=== PATIENT | male | born 1965 | race African-American/Black ===

== ENCOUNTER 2021-10-20 09:57 | Emergency (ER) | payer MEDICARE, OTHER ==
[~2021-10-20] VITALS: Ht 162.6 cm; Wt 77.3 kg
[~2021-10-20 09:57] MED LIST: ELVI1TAB3 PO
[2021-10-20 10:38] VITALS: BP 131/94
[2021-10-20] MEDS ORDERED: PERTUSS(ACELL),DIPH,TET VAC/PF 0.5 ML SYRINGE IM. ONE (10:45)
[2021-10-20] MEDS ORDERED: ACETAMINOPHEN 500 MG TABLET PO ONE (10:45)
== END 2021-10-20 11:40 | disposition home or self-care (01) ==
LOC: EMS 10:02
DX: S01.81XA Laceration without foreign body of other part of head, initial encounter (principal); F17.210 Nicotine dependence, cigarettes, uncomplicated; F14.90 Cocaine use, unspecified, uncomplicated; W22.8XXA Striking against or struck by other objects, initial encounter; Y93.89 Activity, other specified; Y92.89 Other specified places as the place of occurrence of the external cause; Y99.8 Other external cause status
CPT/HCPCS: 70450; 90471; 90715; 99284

== ENCOUNTER 2022-01-08 07:25 | Emergency (ER) | payer MEDICARE, OTHER ==
[~2022-01-08] VITALS: Ht 162.6 cm; Wt 63.6 kg
[2022-01-08 08:17] LABS: BASOPHILS % (AUTO) 0.8 % (0.0-2.0); EOSINOPHILS % (AUTO) 1.9 % (1.0-6.0); HEMATOCRIT 41.9 % (41-53); HEMOGLOBIN 14.3 g/dL (13.5-17.5); LYMPHOCYTES # (AUTO) 1.8 K/uL (1.0-4.8); LYMPHOCYTES % (AUTO) 26.2 % (22.0-44.0); MEAN CORPUSCULAR HEMOGLOBIN 31.9 pg (26.0-34.0); MEAN CORPUSCULAR VOLUME 94 fL (80-100); MONOCYTES # (AUTO) 0.6 K/uL (0.1-1.0); MONOCYTES % (AUTO) 9.6 % (2.0-9.0); NEUTROPHILS # (AUTO) 4.2 K/uL (1.8-7.7); NEUTROPHILS % (AUTO) 61.5 % (40.0-70.0); PLATELET COUNT (AUTO) 335 K/uL (150-450); RED BLOOD CELL COUNT(AUTO) 4.46 MIL/uL (4.50-5.90); RED CELL DISTRIBUTION WIDTH 13.8 % (11.5-14.5)
[2022-01-08] MEDS ORDERED: TRAZ-186 PO (08:21)
[2022-01-08] MEDS ORDERED: BICT1TAB PO (08:22)
[2022-01-08 08:26] LABS: ANION GAP 8 mmol/L (8-16); CALCIUM, TOTAL 8.9 mg/dL (8.8-10.5); CARBON DIOXIDE 28 mmol/L (22-29); CHLORIDE 98 mmol/L (98-107); CREATININE 1.22 mg/dL (0.60-1.30); GLOMERULAR FILTR. RATE CALC > 60 mL/min (>60); GLUCOSE,RANDOM 102 mg/dL (70-110); POTASSIUM 3.7 mmol/L (3.5-5.1); SODIUM SERUM 134 mmol/L (136-145); UREA NITROGEN, BLOOD 14 mg/dL (7-18)
[2022-01-08] MEDS ORDERED: GINS250C10 PO (08:26)
[2022-01-08] MEDS ORDERED: MULT-660 PO (08:26)
[2022-01-08] MEDS ORDERED: MILK500C PO (08:29)
[2022-01-08 08:31] LABS: ALANINE AMINOTRANSFERASE 115 U/L (12-78); ALBUMIN 4.1 g/dL (3.4-5.0); ALKALINE PHOSPHATASE 65 U/L (46-116); ASPARTATE AMINOTRANSFERASE 69 U/L (15-37); BILIRUBIN,TOTAL 1.1 mg/dL (0.1-1.0); TOTAL PROTEIN, SERUM 8.2 g/dL (6.4-8.2)
[2022-01-08 08:33] VITALS: BP 113/68
[2022-01-08 08:37] LABS: AMPHET/METH SCREEN,URINE NEGATIVE (NEGATIVE); BARBITURATE SCREEN, URINE NEGATIVE (NEGATIVE); BENZODIAZEPINES SCREEN,URINE NEGATIVE (NEGATIVE); CANNABINOID SCREEN,URINE NEGATIVE (NEGATIVE); COCAINE SCREEN,URINE POSITIVE (NEGATIVE); METHADONE SCREEN, URINE NEGATIVE (NEGATIVE); OPIATE SCREEN,URINE NEGATIVE (NEGATIVE)
[2022-01-08 08:38] LABS: PHENCYCLIDINE SCREEN,URINE NEGATIVE (NEGATIVE)
== END 2022-01-08 09:45 | disposition home or self-care (01) ==
LOC: EMS 07:30
DX: F32.9 Major depressive disorder, single episode, unspecified (principal); F14.90 Cocaine use, unspecified, uncomplicated; F15.90 Other stimulant use, unspecified, uncomplicated; F17.210 Nicotine dependence, cigarettes, uncomplicated; Z88.2 Allergy status to sulfonamides; Z79.899 Other long term (current) drug therapy
CPT/HCPCS: 36415; 80053; 80307; 85025; 99283; G0480

== ENCOUNTER 2024-05-21 06:14 | Emergency (ER) | payer MEDICARE, OTHER ==
[~2024-05-21] VITALS: Ht 165.1 cm; Wt 75.0 kg
[~2024-05-21 06:14] MED LIST changes: +BICT1TAB PO; +GINS250C10 PO; +MILK500C PO; +MULT-660 PO; +TRAZ-186 PO
[2024-05-21 06:16] VITALS: TEMP 97.9
[2024-05-21 06:28] VITALS: BP 118/68; PULSE 115; RESP 20
[2024-05-21 06:55] LABS: BASOPHILS % (AUTO) 0.3 % (0.0-2.0); EOSINOPHILS % (AUTO) 1.8 % (1.0-6.0); HEMATOCRIT 42.7 % (41-53); LYMPHOCYTES # (AUTO) 1.2 K/uL (1.0-4.8); LYMPHOCYTES % (AUTO) 17.2 % (22.0-44.0); MEAN CORPUSCULAR HEMOGLOBIN 32.7 pg (26.0-34.0); MEAN CORPUSCULAR HGB CONC 32.7 G/dL (31.0-37.0); MEAN CORPUSCULAR VOLUME 100 fL (80-100); MONOCYTES # (AUTO) 0.7 K/uL (0.1-1.0); MONOCYTES % (AUTO) 9.6 % (2.0-9.0); NEUTROPHILS # (AUTO) 5.1 K/uL (1.8-7.7); NEUTROPHILS % (AUTO) 71.1 % (40.0-70.0); PLATELET COUNT (AUTO) 340 K/uL (150-450); RED BLOOD CELL COUNT(AUTO) 4.27 MIL/uL (4.50-5.90); RED CELL DISTRIBUTION WIDTH 15.3 % (11.5-14.5); WHITE BLOOD COUNT (AUTO) 7.1 K/uL (4.5-11.0)
[2024-05-21 07:13] LABS: ANION GAP 3 mmol/L (8-16); CALCIUM, TOTAL 9.8 mg/dL (8.8-10.5); CARBON DIOXIDE 33 mmol/L (22-29); CHLORIDE 102 mmol/L (98-107); CREATININE 1.36 mg/dL (0.60-1.30); GLOMERULAR FILTR. RATE CALC > 60 mL/min (>60); GLUCOSE,RANDOM 97 mg/dL (70-110); POTASSIUM 4.4 mmol/L (3.5-5.1); SODIUM SERUM 138 mmol/L (136-145); UREA NITROGEN, BLOOD 11 mg/dL (7-18)
[2024-05-21 07:46] LABS: ALCOHOL, URINE DRUG SCREEN NEGATIVE (NEGATIVE); AMPHET/METH SCREEN,URINE POSITIVE (NEGATIVE); BARBITURATE SCREEN, URINE NEGATIVE (NEGATIVE); BENZODIAZEPINES SCREEN,URINE NEGATIVE (NEGATIVE); CANNABINOID SCREEN,URINE NEGATIVE (NEGATIVE); COCAINE SCREEN,URINE POSITIVE (NEGATIVE); METHADONE SCREEN, URINE NEGATIVE (NEGATIVE); OPIATE SCREEN,URINE NEGATIVE (NEGATIVE); PHENCYCLIDINE SCREEN,URINE NEGATIVE (NEGATIVE)
[2024-05-21 07:49] LABS: ALCOHOL, BLOOD (SERUM) < 3 mg/dL (0-10)
== END 2024-05-21 07:59 | disposition left against medical advice (07) ==
LOC: EMS 06:15
DX: F19.10 Other psychoactive substance abuse, uncomplicated (principal); F17.210 Nicotine dependence, cigarettes, uncomplicated; F15.10 Other stimulant abuse, uncomplicated; Z88.2 Allergy status to sulfonamides; Z79.899 Other long term (current) drug therapy
CPT/HCPCS: 99283; 80048; 85025; 36415; 80307; G0480

== ENCOUNTER 2024-08-19 13:09 | Emergency (ER) | payer OTHER, MEDICARE ==
[~2024-08-19] VITALS: Ht 162.6 cm; Wt 70.5 kg
[2024-08-19 13:14] VITALS: TEMP 99
[2024-08-19 13:40] VITALS: BP 138/83; PULSE 101; RESP 18; O2SAT 98
[2024-08-19] MEDS: AMOX TR/POT CLAV 875 MG/125 MG TABLET PO ONE (14:22)
[2024-08-19] MEDS: IBUPROFEN 600 MG TABLET PO ONE (14:22)
[2024-08-19] MEDS ORDERED: IBUP-1492 PO (14:41)
[2024-08-19] MEDS ORDERED: AMOX-457 PO (14:41)
== END 2024-08-19 15:05 | disposition home or self-care (01) ==
LOC: EMS 13:09
DX: H66.91 Otitis media, unspecified, right ear (principal); F17.210 Nicotine dependence, cigarettes, uncomplicated; F14.90 Cocaine use, unspecified, uncomplicated; F15.90 Other stimulant use, unspecified, uncomplicated; Z98.890 Other specified postprocedural states; Z88.2 Allergy status to sulfonamides
CPT/HCPCS: 99283

== ENCOUNTER 2024-12-23 14:16 | Inpatient (IN) | payer OTHER, MEDICAID ==
[~2024-12-23] VITALS: Ht 175.3 cm; Wt 74.8 kg
[~2024-12-23 14:16] MED LIST changes: +AMOX-457 PO; +IBUP-1492 PO
[2024-12-23 14:58] LABS: BASOPHILS % (AUTO) 0.2 % (0.0-2.0); EOSINOPHILS % (AUTO) 1.5 % (1.0-6.0); HEMATOCRIT 36.4 % (41-53); LYMPHOCYTES # (AUTO) 0.9 K/uL (1.0-4.8); LYMPHOCYTES % (AUTO) 13.8 % (22.0-44.0); MEAN CORPUSCULAR HEMOGLOBIN 32.2 pg (26.0-34.0); MEAN CORPUSCULAR VOLUME 97 fL (80-100); MONOCYTES # (AUTO) 0.5 K/uL (0.1-1.0); MONOCYTES % (AUTO) 7.5 % (2.0-9.0); NEUTROPHILS # (AUTO) 5.2 K/uL (1.8-7.7); PLATELET COUNT (AUTO) 227 K/uL (150-450); RED BLOOD CELL COUNT(AUTO) 3.73 MIL/uL (4.50-5.90); RED CELL DISTRIBUTION WIDTH 13.8 % (11.5-14.5); WHITE BLOOD COUNT (AUTO) 6.8 K/uL (4.5-11.0)
[2024-12-23 15:08] LABS: ANION GAP 7 mmol/L (8-16); CALCIUM, TOTAL 9.3 mg/dL (8.8-10.5); CARBON DIOXIDE 31 mmol/L (22-29); CHLORIDE 101 mmol/L (98-107); CREATININE 1.23 mg/dL (0.60-1.30); GLOMERULAR FILTR. RATE CALC > 60 mL/min (>60); GLUCOSE,RANDOM 125 mg/dL (70-110); POTASSIUM 3.4 mmol/L (3.5-5.1); SODIUM SERUM 139 mmol/L (136-145); UREA NITROGEN, BLOOD 7 mg/dL (7-18)
[2024-12-23 15:28] LABS: ALCOHOL, BLOOD (SERUM) < 3 mg/dL (0-10)
[2024-12-23 15:53] LABS: APPEARANCE,URINE CLEAR (CLEAR); BILIRUBIN,URINE NEGATIVE (NEGATIVE); COLOR,URINE COLORLESS (YELLOW); GLUCOSE, URINE (UA) NEGATIVE (NEGATIVE); KETONES,URINE NEGATIVE (NEGATIVE); LEUKOCYTE ESTERASE ,URINE NEGATIVE (NEGATIVE); NITRATE,URINE NEGATIVE (NEGATIVE); OCCULT BLOOD,URINE NEGATIVE (NEGATIVE); PROTEIN,URINE NEGATIVE (NEGATIVE); SPECIFIC GRAVITIY, URINE 1.003 (1.003-1.030); UROBILINOGEN,URINE <=1.0 mg/dL (<=1.0)
[2024-12-23 16:01] LABS: AMPHET/METH SCREEN,URINE NEGATIVE (NEGATIVE); BARBITURATE SCREEN, URINE NEGATIVE (NEGATIVE); BENZODIAZEPINES SCREEN,URINE NEGATIVE (NEGATIVE); CANNABINOID SCREEN,URINE NEGATIVE (NEGATIVE); COCAINE SCREEN,URINE NEGATIVE (NEGATIVE); METHADONE SCREEN, URINE NEGATIVE (NEGATIVE); OPIATE SCREEN,URINE NEGATIVE (NEGATIVE); PHENCYCLIDINE SCREEN,URINE NEGATIVE (NEGATIVE)
[2024-12-23 16:03] LABS: ALCOHOL, URINE DRUG SCREEN NEGATIVE (NEGATIVE)
[2024-12-24] MEDS: POTASSIUM CHLORIDE 20 MEQ ER TABLET PO ONE (00:34)
[2024-12-24] MEDS: ZOLPIDEM TARTRATE 10 MG TABLET PO PRN (02:20)
[2024-12-24] MEDS: LORazepam 2 MG TABLET PO PRN (09:49)
[2024-12-24] MEDS: BICTEGRAV/EMTRICIT/TENOFOV ALA 50-200-25 MG TABLET PO SCH (10:49)
[2024-12-24 18:31] VITALS: BP 132/86; PULSE 86; RESP 18; TEMP 98.2; O2SAT 97
[2024-12-24] MEDS ORDERED: GABA-1404 PO (19:53)
[2024-12-24] MEDS ORDERED: FENO145T26 PO (19:53)
[2024-12-24] MEDS ORDERED: NAPR-1196 PO (19:53)
[2024-12-24] MEDS ORDERED: TEST200V21 IM (19:53)
[2024-12-24 20:00] VITALS: BP 117/80; PULSE 94; RESP 17; TEMP 96.7; O2SAT 100
[2024-12-24] MEDS: NICOTINE POLACRILEX 2 MG LOZENGE PO PRN (20:52)
[2024-12-25 08:18] VITALS: BP 113/80; PULSE 84; RESP 18; TEMP 97.7; O2SAT 98
[2024-12-25] MEDS: GABAPENTIN 300 MG CAPSULE PO SCH (08:18)
[2024-12-25] MEDS: BICTEGRAV/EMTRICIT/TENOFOV ALA 50-200-25 MG TABLET PO SCH (08:18)
[2024-12-25] MEDS: HALOPERIDOL 5 MG TABLET PO PRN (08:30)
[2024-12-25] MEDS ORDERED: ONDANSETRON 4 MG TABLET PO PRN (19:00)
[2024-12-25] MEDS ORDERED: ALBUTEROL SULFATE HFA 90 MCG/PUFF 8 GM INHALER IH PRN (19:00)
[2024-12-25] MEDS ORDERED: IBUPROFEN 400 MG TABLET PO PRN (19:00)
[2024-12-25] MEDS ORDERED: LOPERAMIDE HCL 2 MG CAPSULE PO PRN (19:00)
[2024-12-25] MEDS ORDERED: ACETAMINOPHEN 325 MG TABLET PO PRN (19:00)
[2024-12-25] MEDS ORDERED: MAGNESIUM HYDROXIDE SUSPENSION 30 ML UDCUP PO PRN (19:00)
[2024-12-25] MEDS ORDERED: GuaiFENesin/D-METHORPHAN [SUGAR-FREE] 200-20MG/10 ML SYRUP UDCUP PO PRN (19:00)
[2024-12-25] MEDS ORDERED: CloNIDine HCL 0.1 MG TABLET PO PRN (19:00)
[2024-12-25] MEDS ORDERED: MAG HYDROX/ALUMINUM HYD/SIMETH ES 30 ML SUSPENSION UDCUP PO PRN (19:00)
[2024-12-25] MEDS ORDERED: DOCUSATE SODIUM 100 MG CAPSULE PO PRN (19:00)
[2024-12-25 20:24] VITALS: BP 109/73; PULSE 90; RESP 17; TEMP 97.2; O2SAT 95
[2024-12-25] MEDS: TraZODone HCL 100 MG TABLET PO SCH (21:04)
[2024-12-25] MEDS: LURASIDONE HCL 60 MG TABLET PO SCH (21:04)
[2024-12-26 08:11] VITALS: BP 95/61; PULSE 86; RESP 17; TEMP 98.3; O2SAT 100
[2024-12-26 09:39] LABS: CHOL/HDL RATIO 2.4 (4.2-7.3); THYROID STIMULATING HORMONE 1.73 uIU/mL (0.36-3.74)
[2024-12-26 09:53] VITALS: BP 95/61; PULSE 86; RESP 17; TEMP 98.3; O2SAT 100
[2024-12-26 20:19] VITALS: BP 122/74; PULSE 88; RESP 18; TEMP 97.6
[2024-12-27 05:56] LABS: POTASSIUM 4.2 mmol/L (3.5-5.1)
[2024-12-27 08:21] VITALS: BP 107/75; PULSE 90; RESP 17; TEMP 97.5; O2SAT 97
[2024-12-27 21:11] VITALS: BP 145/94; PULSE 98; RESP 16; TEMP 97.8; O2SAT 98
[2024-12-28 08:09] VITALS: RESP 16
[2024-12-28 20:18] VITALS: BP 152/96; PULSE 91; RESP 17; TEMP 97.5; O2SAT 98
[2024-12-29 08:00] VITALS: BP 118/78; PULSE 84; RESP 18; TEMP 97.7; O2SAT 97
[2024-12-29] MEDS: NICOTINE 14 MG/24 HOUR PATCH TD PRN (08:39)
[2024-12-29 20:07] VITALS: RESP 16
[2024-12-30 08:20] VITALS: BP 125/85; PULSE 88; RESP 18; TEMP 98.1; O2SAT 97
[2024-12-30 08:38] LABS: APPEARANCE,URINE CLEAR (CLEAR); BILIRUBIN,URINE NEGATIVE (NEGATIVE); COLOR,URINE COLORLESS (YELLOW); GLUCOSE, URINE (UA) NEGATIVE (NEGATIVE); KETONES,URINE NEGATIVE (NEGATIVE); LEUKOCYTE ESTERASE ,URINE NEGATIVE (NEGATIVE); NITRATE,URINE NEGATIVE (NEGATIVE); OCCULT BLOOD,URINE NEGATIVE (NEGATIVE); PH,URINE 7.5 (5.0-8.0); PH,URINE DRUG SCREEN 7.5 (5.0-8.0); PROTEIN,URINE NEGATIVE (NEGATIVE); SPECIFIC GRAVITIY, URINE 1.009 (1.003-1.030); UROBILINOGEN,URINE <=1.0 mg/dL (<=1.0)
[2024-12-30 08:52] LABS: ALCOHOL, URINE DRUG SCREEN NEGATIVE (NEGATIVE); AMPHET/METH SCREEN,URINE NEGATIVE (NEGATIVE); BARBITURATE SCREEN, URINE NEGATIVE (NEGATIVE); BENZODIAZEPINES SCREEN,URINE NEGATIVE (NEGATIVE); CANNABINOID SCREEN,URINE NEGATIVE (NEGATIVE); COCAINE SCREEN,URINE NEGATIVE (NEGATIVE); METHADONE SCREEN, URINE NEGATIVE (NEGATIVE); OPIATE SCREEN,URINE NEGATIVE (NEGATIVE); PHENCYCLIDINE SCREEN,URINE NEGATIVE (NEGATIVE)
[2024-12-30] MEDS: PETROLATUM,WHITE 28 GM JELLY TP PRN (10:43)
[2024-12-30 21:03] VITALS: BP 133/82; PULSE 90; RESP 17; TEMP 97.1; O2SAT 98
[2024-12-31 08:24] VITALS: BP 127/93; PULSE 93; RESP 18; TEMP 97.7; O2SAT 98
[2024-12-31 20:20] VITALS: BP 131/87; PULSE 100; RESP 18; TEMP 97.5; O2SAT 97
[2025-01-01 08:24] VITALS: BP 131/87; PULSE 89; RESP 18; TEMP 97.9; O2SAT 97
[2025-01-01 20:13] VITALS: BP 130/81; PULSE 91; RESP 18; TEMP 97.1; O2SAT 99
[2025-01-02 08:08] VITALS: BP 124/72; PULSE 98; RESP 19; TEMP 97.8; O2SAT 97
[2025-01-02 20:55] VITALS: BP 108/71; PULSE 103; RESP 18; TEMP 98; O2SAT 98
[2025-01-03 20:06] VITALS: BP 125/85; PULSE 98; RESP 19; TEMP 97.8; O2SAT 98
[2025-01-04 08:14] VITALS: BP 116/80; PULSE 90; RESP 17; TEMP 98.1; O2SAT 98
[2025-01-04 20:13] VITALS: BP 128/85; PULSE 99; RESP 16; TEMP 98.4; O2SAT 98
[2025-01-05 08:09] VITALS: BP 118/79; PULSE 100; RESP 17; TEMP 97.6; O2SAT 97
[2025-01-05 20:00] VITALS: BP 123/80; PULSE 110; RESP 17; TEMP 97.7; O2SAT 98
[2025-01-06 08:36] VITALS: BP 110/75; PULSE 98; RESP 17; TEMP 98.2; O2SAT 97
[2025-01-06 20:00] VITALS: BP 114/80; PULSE 100; RESP 18; TEMP 98.2; O2SAT 98
[2025-01-07 08:17] VITALS: BP 109/75; PULSE 97; RESP 17; TEMP 97.2; O2SAT 97
[2025-01-07] MEDS ORDERED: LURA60TA PO (18:57)
[2025-01-07] MEDS ORDERED: GABA-1181 PO (18:58)
== END 2025-01-07 19:42 | disposition left against medical advice (07) | DRG 885 ==
LOC: EMS 14:32 → B2S 12-24 10:55 → B3A 12-24 15:29 → B2X 12-28 15:30
PROVIDERS: ADMIT Psychiatry & Neurology Child & Adolescent Psychiatry; ATTEND Psychiatry & Neurology Child & Adolescent Psychiatry
PROC: GZHZZZZ Group Psychotherapy (ICD-10-PCS; principal; 2024-12-25)
PROC: GZ52ZZZ Individual Psychotherapy, Cognitive (ICD-10-PCS; 2024-12-25)
PROC: GZ56ZZZ Individual Psychotherapy, Supportive (ICD-10-PCS; 2024-12-25)
DX: F25.1 Schizoaffective disorder, depressive type (principal); D64.9 Anemia, unspecified; E87.6 Hypokalemia; F16.90 Hallucinogen use, unspecified, uncomplicated; F15.90 Other stimulant use, unspecified, uncomplicated; I10 Essential (primary) hypertension; Z53.29 Procedure and treatment not carried out because of patient's decision for other reasons; Z87.891 Personal history of nicotine dependence; Z88.2 Allergy status to sulfonamides; Z91.148 Patient's other noncompliance with medication regimen for other reason; Z21 Asymptomatic human immunodeficiency virus [HIV] infection status; F19.10 Other psychoactive substance abuse, uncomplicated
CPT/HCPCS: 80048; 80061; 80307; 81003; 83036; 84132; 84443; 85025; 87491; 87591; 99285; G0480

== ENCOUNTER 2025-06-13 04:03 | Emergency (ER) | payer OTHER ==
[~2025-06-13] VITALS: Ht 162.6 cm; Wt 72.7 kg
[~2025-06-13 04:03] MED LIST changes: -AMOX-457 PO; -BICT1TAB PO; -ELVI1TAB3 PO; +GABA-1181 PO; -GINS250C10 PO; -IBUP-1492 PO; +LURA60TA PO; -MILK500C PO; -MULT-660 PO; -TRAZ-186 PO
[2025-06-13 04:05] VITALS: BP 119/87; PULSE 99; RESP 16; TEMP 98.1; O2SAT 97
[2025-06-13] MEDS: ACETAMINOPHEN 500 MG TABLET PO ONE (05:08)
== END 2025-06-13 06:13 | disposition home or self-care (01) ==
LOC: EMS 04:05
DX: S60.011A Contusion of right thumb without damage to nail, initial encounter (principal); F25.9 Schizoaffective disorder, unspecified; Z88.2 Allergy status to sulfonamides; Z79.899 Other long term (current) drug therapy; W22.8XXA Striking against or struck by other objects, initial encounter; Y93.89 Activity, other specified; Y92.89 Other specified places as the place of occurrence of the external cause; Y99.8 Other external cause status
CPT/HCPCS: 99283